=== PATIENT | female | born 1980 | race Two or more races ===

== ENCOUNTER 2016-10-06 19:56 | Emergency (ER) | payer OTHER ==
[~2016-10-06] VITALS: Ht 154.9 cm; Wt 53.5 kg
--- NOTE | ~2016-10-06 | CR230 ---
[facility] A Service of [facility] RADIOLOGY TEXT RESULTS PATIENT: MANN TAMAYO LOCATION: [facility] : 76 UNIT #: [id number] AGE: [address]: Mu Tomlinson SEX: F ORDER DR: [id number] [facility] [address] [place], [place] [address] [id number] E MR#: [id number] Acc #: [id number] NAME: MANN TAMAYO : 1980 SEX: F STUDY DATE/TIME: 10/06/2016 20:53 UNIT: [facility] ROOM: STUDY DESCRIPTION: CR Shoulder Min 2 View Rt Attending Physician: Mu Tomlinson P.A.-C. Ordering Physician: Mu Tomlinson P.A.-C. Primary Care Physician: Elisabeth Lopez M.D. MEDICAL IMAGING REPORT This report is preliminary unless electronic signature is present EXAM Right shoulder 2 views HISTORY Right shoulder pain and swelling for 2 weeks, possible strain while moving boxes at work. FINDINGS Examination demonstrates mild incongruity of the AC joint. This is a nonspecific finding. No fracture. The glenohumeral joint unremarkable. No arthropathy. Soft tissues visualized right thorax appear normal. IMPRESSION Minimal incongruity to the AC joint. This can be a normal anatomic finding. Correlate with targeted physical exam. Clearly no fracture or obvious soft tissue pathology demonstrated. Dictated by... Amanda Back M.D. THIS IS AN ELECTRONICALLY VERIFIED REPORT Amanda Back M.D. at 10/07/2016 5:38 PM Carrillo TD: 10/07/2016 09:06 JOB #: [id number] MEDICAL IMAGING REPORT Page 1 of 1 COPY
== END 2016-10-06 21:40 | disposition home or self-care (01) ==
LOC: CFTX 19:56 → CED 19:56 → CFTX 21:30
DX: S46.911A Strain of unspecified muscle, fascia and tendon at shoulder and upper arm level, right arm, initial encounter (principal); X50.9XXA Other and unspecified overexertion or strenuous movements or postures, initial encounter; Y92.69 Other specified industrial and construction area as the place of occurrence of the external cause; Y99.0 Civilian activity done for income or pay
CPT/HCPCS: 73030; 99283